=== PATIENT | male | born 1980 | race Hispanic/Latino ===

== ENCOUNTER 2022-09-06 07:27 | Emergency (ER) | payer OTHER ==
[2022-09-06] VITALS (7 sets, daily range): BP systolic 119–129; BP diastolic 74–98
[~2022-09-06] VITALS: Ht 170.2 cm; Wt 75.0 kg
[2022-09-06 07:58] LABS: BASO% 0.8 % (0-3); EOS% 1.1 % (0-8); HEMATOCRIT 44.1 % (39.0-50.0); HEMOGLOBIN 15.4 g/dl (14.0-18.0); LYMPH% 27.8 % (15-41); MEAN CELL VOLUME 88.6 fL CALC (80.0-100.0); MEAN CORPUSCULAR HGB 30.9 pG CALC (26.0-32.0); MEAN CORPUSCULAR HGB CONC 34.9 g/dL CAL (32.0-36.0); MONO% 4.3 % (2-13); NEUT# 4.7 thou/uL (1.82-7.42); RED BLOOD COUNT 4.98 mill/uL (4.70-6.10); RED CELL DISTRI WIDTH 11.8 % (11.5-15.5)
[2022-09-06 08:09] LABS: ALBUMIN 4.8 g/dL (3.2-5.0); ALKALINE PHOSPHATASE 95 u/l (38-126); ANION GAP 14 (6-22 (CALC)); BILIRUBIN, TOTAL 0.7 mg/dL (0.2-1.3); BUN 18 mg/dL (9-20); BUN/CREATININE RATIO 16 (12-20 (CALC)); CARBON DIOXIDE 26 mmol/l (22-30); CHLORIDE 105 mmol/l (95-108); CREATININE 1.2 mg/dL (0.7-1.3); GFR FOR AFR.AMER. > 60 ML/MIN (>=60 (CALC)); GFR OTHER RACES > 60 ML/MIN (>=60 (CALC)); LIPASE 87 u/l (23-300); POTASSIUM 3.7 mmol/l (3.5-5.1); SGOT/AST 22 u/l (17-59); SODIUM 140 mmol/l (137-146); TOTAL PROTEIN 7.8 g/dL (6.3-8.2)
[2022-09-06 09:36] LABS: URINE BILIRUBIN - DIPSTICK NEGATIVE (NEGATIVE); URINE BLOOD DIPSTICK LARGE (NEGATIVE); URINE COLOR YELLOW; URINE GLUCOSE - DIPSTICK NEGATIVE (NEGATIVE); URINE KETONE TRACE mg/dL (NEGATIVE); URINE LEUK ESTERASE NEGATIVE (NEGATIVE); URINE PH 7.5 (4.5-8.0); URINE PROTEIN - DIPSTICK NEGATIVE (NEG-TRACE); URINE UROBILINOGEN - DIPSTICK 0.2 E.U./dL (0.2)
[2022-09-06 09:37] LABS: URINE NITRITE - DIPSTICK NEGATIVE (Negative)
[2022-09-06 09:38] LABS: URINE RBC 25-50 RBC/hpf (0-5)
[2022-09-06] MEDS ORDERED: TRAMADOL HYDROC50 M1 PO (10:06)
[2022-09-06] MEDS ORDERED: TORADOL PO (10:06)
[2022-09-06] MEDS ORDERED: TAMSULOSIN0.4 MG PO (10:06)
== END 2022-09-06 11:48 | disposition home or self-care (01) | DRG 694 ==
LOC: ED 07:27
PROVIDERS: Family Medicine
DX: N13.2 Hydronephrosis with renal and ureteral calculous obstruction (principal); N43.3 Hydrocele, unspecified
CPT/HCPCS: Q9967